=== PATIENT | male | born 1955 | race Caucasian/White ===

== ENCOUNTER 2021-02-27 05:56 | Day surgery (SDC) | payer MEDICARE ==
[~2021-02-27] VITALS: Ht 177.8 cm; Wt 136.4 kg
[~2021-02-27 05:56] MED LIST: DILT-72 PO; FLUO20CA36 PO; FLUT1AER IH; GLIP2.5ER PO; LOSA50TA37 PO; METF-961 PO; METO25 PO; MOME13HF2 IH; MONT10TA32 PO; PANT40TA54 PO; SEMA3TAB PO; SILD50TA54 PO; WARF5TAB40 PO
[2021-02-27] MEDS ORDERED: LIDOCAINE 4% 50 ML SOLUTION TP ONE (05:57)
[2021-02-27] MEDS ORDERED: LIDOCAINE 2% 30 ML JELLY TP ONE (05:57)
[2021-02-27] MEDS ORDERED: ALBUTEROL SULFATE 2.5 MG/0.5 ML NEB SOLUTION NEB ONE (05:57)
[2021-02-27] MEDS ORDERED: BENZOCAINE 20% 50 MCG/SPRAY 57 GM TP ONE (05:57)
[2021-02-27] MEDS ORDERED: SODIUM CHLORIDE 0.9% 1,000 ML IV ONE (06:30)
[2021-02-27] MEDS ORDERED: SODIUM CHLORIDE 0.9% 1,000 ML ONE (06:50)
[2021-02-27 07:26] LABS: GLUCOMETER DEV NAME(LOC) SDS.; GLUCOSE,POINT OF CARE 150 MG/DL (70-110)
[2021-02-27] MEDS ORDERED: FentaNYL CITRATE PF 100 MCG/2 ML VIAL ONE (07:46)
[2021-02-27] MEDS ORDERED: MIDAZOLAM HCL 5 MG/ML VIAL ONE (07:46)
[2021-02-27 08:11] LABS: COVID AG,FIA SOURCE NASOPHARYNGEAL
[2021-02-27] MEDS ORDERED: MethylPREDNISolone SOD SUCC 125 MG/2 ML VIAL IVP ONE (09:00)
[2021-02-27] MEDS ORDERED: MethylPREDNISolone SOD SUCC 125 MG/2 ML VIAL ONE (09:04)
[2021-02-27] MEDS ORDERED: OXYGEN THERAPY IH SCH (20:00)
== END 2021-02-27 10:30 | disposition home or self-care (01) ==
LOC: SURGERY 05:56
PROVIDERS: ATTEND Internal Medicine Critical Care Medicine
DX: J38.4 Edema of larynx (principal); B37.0 Candidal stomatitis; Z98.890 Other specified postprocedural states; Z79.899 Other long term (current) drug therapy
CPT/HCPCS: 31623; 31624; 71045; 82962; 87015; 87070; 87077; 87101; 87186; 87205; 87206; 87220; 87426; 88108; 88184; 88185; 88312; C9803; J2250; J2930; J3010; J7030; J7613; Z7610